=== PATIENT | female | born 1980 | race Caucasian/White ===

== ENCOUNTER 2017-03-24 11:25 | Emergency (ER) | payer BC, OTHER ==
[~2017-03-24] VITALS: Ht 172.7 cm; Wt 76.0 kg
[~2017-03-24 11:25] MED LIST: AMOX875T2 PO; LORTA5 PO; SYNT88TA PO; TAB-TAB PO
[2017-03-24 11:27] VITALS: BP 127/95; PULSE 87; RESP 20; TEMP 98.4; O2SAT 100
--- NOTE | 2017-03-24 11:45 | PD ---
HPI Chief Complaint: Respiratory Distress Time Seen by Provider: 11:39 Travel History International Travel<30 days: No Contact w/Intl Traveler<30days: No Traveled to known affect area: No History of Present Illness HPI 36-year-old female complains of headache, sinus congestion, persistent cough. Patient states that the symptoms started a month ago. Patient was seen by personal physician and given amoxicillin and prednisone, then Z-Jay, and then Biaxin recently. Patient states that she had persistent symptoms despite taking the medications. Patient states that the headache is mild aching headache. Patient denies any visual change. Patient states that she has a lot of pressure on the frontal no masses sinus area. Patient denies earache or sore throat. Patient denies any neck pain. Patient denies chest pain or shortness of breath. Patient denies abdominal pain. Patient states that she has intermittent nausea but no vomiting or diarrhea. Patient denies any dysuria or frequency. Patient denies any vaginal discharge or bleeding. PFSH Past Medical History Hx Anticoagulant Therapy: No Anxiety: Yes Cardiovascular Problems: No Chemotherapy: No Cerebrovascular Accident: No Diabetes: No Diminished Hearing: No Hypertension: Yes Respiratory: No Thyroid Disease: Yes (hypo) ?: Unknown LMP: 03/21/17 Past Surgical History Hysterectomy: No Other Surgery: Yes (ADNIODS REMOVED, BREAST AUGMENTATION 1999, 2000) Social History Alcohol Use: Yes (7 DRINKS WEEKLY) Tobacco Use: Yes (1PPD FOR 10 YEARS) Substance Use: No Allergies-Medications (Allergen,Severity, Reaction): Coded Allergies: No Known Allergies (Verified , 03/24/17) Reported Meds & Prescriptions Reported Meds & Active Scripts Active Reported Ativan (Lorazepam) 1 Mg Tab 1 Mg PO HS PRN One Daily (Multiple Vitamin) 1 Tab 1 Tab PO DAILY Probiotic (Saccharomyces Boulardii) 250 Mg Cap 250 Mg PO BID Wellbutrin Xl 24 HR (Bupropion HCl) 150 Mg Tab 150 Mg PO DAILY Synthroid (Levothyroxine Sodium) 100 Mcg Tab 100 Mcg PO DAILY Review of Systems General / Constitutional: No: Fever Eyes: No: Visual changes HENT: Positive: Congestion, No: Headaches Cardiovascular: No: Chest Pain or Discomfort Respiratory: Positive: Cough, No: Shortness of Breath Gastrointestinal: No: Abdominal Pain Genitourinary: No: Dysuria Musculoskeletal: No: Pain Skin: No Rash Neurologic: No: Weakness Psychiatric: No: Depression Endocrine: No: Polydipsia Hematologic/Lymphatic: No: Easy Bruising Physical Exam Narrative GENERAL: Well-nourished, well-developed patient. SKIN: Focused skin assessment warm/dry. HEAD: Normocephalic. EYES: No scleral icterus. No injection or drainage. TM: Clear. Throat: Nonerythematous. Patient has tenderness on palpation frontal and maxillary sinus area. NECK: Supple, trachea midline. No JVD or lymphadenopathy. No meningismus CARDIOVASCULAR: Regular rate and rhythm without murmurs, gallops, or rubs. RESPIRATORY: Breath sounds equal bilaterally. No accessory muscle use. GASTROINTESTINAL: Abdomen soft, non-tender, nondistended. MUSCULOSKELETAL: No cyanosis, or edema. BACK: Nontender without obvious deformity. No CVA tenderness. Neurologic exam normal. Data Data Last Documented VS Vital Signs Date Time Temp Pulse Resp B/P Pulse Ox O2 Delivery O2 Flow Rate FiO2 03/24/17 13:13 71 20 121/76 99 Room Air 03/24/17 11:53 99.0 Orders Complete Blood Count With Diff (03/24/17 11:39) Comprehensive Metabolic Panel (03/24/17 11:39) Monoscreen (03/24/17 11:39) Influenzae A/B Antigen (03/24/17 11:39) Chest, Single Ap (03/24/17 11:39) Iv Access Insert/Monitor (03/24/17 11:39) Ecg Monitoring (03/24/17 11:39) Oximetry (03/24/17 11:39) Ct Sinuses W/O Iv Contrast (03/24/17 ) Ed Urine Pregnancytest Poc (03/24/17 12:13) Ketorolac Inj (Toradol Inj) (03/24/17 12:30) Labs Laboratory Tests Test 03/24/17 12:02 White Blood Count 5.5 TH/MM3 Red Blood Count 4.64 MIL/MM3 Hemoglobin 14.4 GM/DL Hematocrit 42.3 % Mean Corpuscular Volume 91.1 FL Mean Corpuscular Hemoglobin 31.1 PG Mean Corpuscular Hemoglobin 34.1 % Concent Red Cell Distribution Width 12.7 % Platelet Count 230 TH/MM3 Mean Platelet Volume 8.9 FL Neutrophils (%) (Auto) 67.9 % Lymphocytes (%) (Auto) 23.4 % Monocytes (%) (Auto) 6.6 % Eosinophils (%) (Auto) 1.3 % Basophils (%) (Auto) 0.8 % Neutrophils # (Auto) 3.8 TH/MM3 Lymphocytes # (Auto) 1.3 TH/MM3 Monocytes # (Auto) 0.4 TH/MM3 Eosinophils # (Auto) 0.1 TH/MM3 Basophils # (Auto) 0.0 TH/MM3 CBC Comment DIFF FINAL Differential Comment Sodium Level 140 MEQ/L Potassium Level 4.2 MEQ/L Chloride Level 106 MEQ/L Carbon Dioxide Level 26.3 MEQ/L Anion Gap 8 MEQ/L Blood Urea Nitrogen 17 MG/DL Creatinine 0.89 MG/DL Estimat Glomerular Filtration 72 ML/MIN Rate Random Glucose 65 MG/DL Calcium Level 9.5 MG/DL Total Bilirubin 0.3 MG/DL Aspartate Amino Transf 16 U/L (AST/SGOT) Alanine Aminotransferase 30 U/L (ALT/SGPT) Alkaline Phosphatase 69 U/L Total Protein 7.1 GM/DL Albumin 4.0 GM/DL Monoscreen NEG MDM Medical Decision Making Medical Screen Exam Complete: Yes Emergency Medical Condition: Yes Interpretation(s) Last Impressions Chest X-Ray 03/24/17 1139 Signed Impressions: Service Date/Time: Friday, March 24, 2017 11:36 - CONCLUSION: 1. No acute cardiomegaly disease. Fabian Fowler MD 12:22 PM. CBC within normal limit. 1:[address] of the sinus negative for acute disease. Monoscreen negative. Influenza AB antigen negative. Differential Diagnosis Differential diagnosis including sinusitis, bronchitis, pneumonia, reactive airway disease, viral syndrome. Narrative Course 36-year-old female with headache, sinus pressure, persistent cough. Diagnosis Primary Impression: Cephalgia Qualified Code: R51 - Nonintractable episodic headache, unspecified headache type Additional Impression: Viral syndrome Patient Instructions: General Instructions Additional Instructions: Take medications as needed. Follow-up with personal physician. Return if persistent problem or worse. Med/Other Pt SpecificInfo: Prescription(s) given Scripts Ondansetron Odt (Zofran Odt)4 Mg Tab4 Mg SL Q6HR PRN (Nausea/Vomiting) #10 TAB Ref 0 Prov:Rod De Oliveira MD 03/24/17 Qtofexvfwu-Oqeoeotcnondc-Cpkasnag (Fioricet)50-300-40 Mg Cap1-2 Cap PO Q6H PRN ( HEADACHE) #30 CAP Ref 0 Prov:Rod De Oliveira MD 03/24/17 Disposition: 01 DISCHARGE HOME Condition: Stable Rod De Oliveira MD Mar 24, 2017 11:45
[2017-03-24 11:51] VITALS: BP 139/93; PULSE 73; RESP 21; TEMP 99; O2SAT 99
[2017-03-24 11:53] VITALS: BP 139/93; PULSE 73; RESP 21; TEMP 99; O2SAT 100
--- NOTE | 2017-03-24 11:58 | RADRPT ---
EXAM DATE/TIME: 03/24/2017 11:36 [facility] COMPARISON: No previous studies available for comparison. INDICATIONS : Shortness of breath. MEDICAL HISTORY : None. SURGICAL HISTORY : None. ENCOUNTER: Initial ACUITY: 3 days PAIN SCORE: 0/10 LOCATION: Bilateral chest FINDINGS: A single view of the chest demonstrates the lungs to be symmetrically aerated without evidence of mas s, infiltrate or effusion. The cardiomediastinal contours are unremarkable. Osseous structures are intact. CONCLUSION: 1. No acute cardiomegaly disease. Fabian Fowler MD on March 24, 2017 at 11:55 Board Certified Radiologist. This report was verified electronically.
[2017-03-24 12:15] LABS: AUTOMATED NEUTROPHIL # 3.8 TH/MM3 (1.8-7.7); BASOPHIL % 0.8 % (0.0-2.0); EOSINOPHIL # 0.1 TH/MM3 (0-0.4); EOSINOPHIL % 1.3 % (0.0-4.0); HEMATOCRIT 42.3 % (35.0-46.0); HEMO FLAGS DIFF FINAL; LYMPH % 23.4 % (9.0-44.0); LYMPHOCYTE # 1.3 TH/MM3 (1.0-4.8); MEAN CELL VOLUME 91.1 FL (80.0-100.0); MEAN CORPUSCULAR HEMOGLOBIN 31.1 PG (27.0-34.0); MEAN CORPUSCULAR HGB CONC 34.1 % (32.0-36.0); MONO % 6.6 % (0.0-8.0); NEUT % 67.9 % (16.0-70.0); PLATELET COUNT 230 TH/MM3 (150-450); RED BLOOD COUNT 4.64 MIL/MM3 (4.00-5.30); RED CELL DISTRIBUTION WIDTH 12.7 % (11.6-17.2); WHITE BLOOD COUNT 5.5 TH/MM3 (4.0-11.0)
[2017-03-24] MEDS ORDERED: KETOROLAC TROMETHAMINE 30 MG/ML (IVP) VIAL IV PUSH ONE (12:30)
[2017-03-24 12:36] LABS: ALT (GPT) 30 U/L (10-53); ANION GAP 8 MEQ/L (5-15); AST (GOT) 16 U/L (15-37); BICARBONATE 26.3 MEQ/L (21.0-32.0); BLOOD UREA NITROGEN 17 MG/DL (7-18); CHLORIDE 106 MEQ/L (98-107); GLOMERULAR FILTRATION RATE 72 ML/MIN (>89); POTASSIUM 4.2 MEQ/L (3.5-5.1); SODIUM (NA) 140 MEQ/L (136-145)
[2017-03-24] MEDS ORDERED: SACC1CAP3 PO (12:37)
[2017-03-24] MEDS ORDERED: BUPR150XL PO (12:37)
[2017-03-24] MEDS ORDERED: LEVO.1 PO (12:37)
[2017-03-24 12:39] LABS: ALKALINE PHOSPHATASE 69 U/L (45-117); TOTAL BILIRUBIN ADULT 0.3 MG/DL (0.2-1.0)
[2017-03-24] MEDS ORDERED: LORA-474 PO (12:39)
[2017-03-24] MEDS ORDERED: MULT-207 PO (12:39)
--- NOTE | 2017-03-24 12:43 | RADRPT ---
EXAM DATE/TIME: 03/24/2017 12:14 [facility] COMPARISON: No previous studies available for comparison. INDICATIONS : Headache RADIATION DOSE: 13.57 CTDIvol (mGy) MEDICAL HISTORY : Hypertension. SURGICAL HISTORY : None. ENCOUNTER: Initial ACUITY: 1 day PAIN SCORE: 5/10 LOCATION: facial TECHNIQUE: Volumetric scanning of the paranasal sinuses was performed. Using automated exposure control and adjustment of the mA and/or kV according to patient size, radiation dose was kept as low as reasonably achievable to obtain optimal diagnostic quality images. FINDINGS: MAXILLARY SINUSES: Normal. No significant mucosal thickening or fluid. Infundibula are patent. No anomalous inferior orbital ethmoid (Syibl) air cells. ETHMOID SINUSES: Normal. No significant mucosal thickening or fluid. Fovea ethmoidal and lamina papyracea are symmetric and intact. SPHENOID SINUSES: Normal. No significant mucosal thickening or fluid. Sphenoethmoidal recesses are patent. No bony dehiscence. FRONTAL SINUSES: Normal. No significant mucosal thickening or fluid. Frontal recesses are paten t. No anomalous frontal air cells. NASAL FOSSA: Normal. No septal perforation or deviation. No audie bullosa or paradoxical turbina karthik are identified. OTHER: Normal. Limited views of the skull base and orbits are unremarkable. CONCLUSION: Negative for significant sinus disease. Jose Heard MD FACR on March 24, 2017 at 12:39 Board Certified Radiologist. This report was verified electronically.
[2017-03-24 13:13] VITALS: BP 121/76; PULSE 71; RESP 20; O2SAT 99
[2017-03-24] MEDS ORDERED: BUTA1CAP PO (13:24)
[2017-03-24] MEDS ORDERED: ZOFR4TAB3 SL (13:24)
== END 2017-03-24 14:10 | disposition home or self-care (01) ==
LOC: NEPD 11:25
DX: R51 Headache (principal); B34.9 Viral infection, unspecified; R06.02 Shortness of breath; I10 Essential (primary) hypertension; F17.210 Nicotine dependence, cigarettes, uncomplicated
CPT/HCPCS: 70486; 71010; 80053; 84703; 85025; 86308; 87804; 96374; 99285; J1885

== ENCOUNTER 2017-08-16 16:31 | Emergency (ER) | payer BC, OTHER ==
[~2017-08-16 16:31] MED LIST changes: -AMOX875T2 PO; +BUPR150XL PO; +BUTA1CAP PO; +LEVO.1 PO; +LORA-474 PO; -LORTA5 PO; +MULT-207 PO; +SACC1CAP3 PO; -SYNT88TA PO; -TAB-TAB PO; +ZOFR4TAB3 SL
[2017-08-16 16:40] VITALS: BP 131/88; PULSE 77; RESP 20; TEMP 98.5; O2SAT 98
[2017-08-16 17:25] LABS: BLOOD, URINE NEG (NEG); GLUCOSE,URINE NEG (NEG); KETONE, URINE NEG (NEG); NITRITE,URINE NEG (NEG)
[2017-08-16 17:35] LABS: METHOD OF COLLECTION CLEAN CATCH; URINE COLOR YELLOW (YELLW/STRAW)
[2017-08-16 17:36] LABS: COMMENT (UR) CULT NOT INDICATED; CULTURE IF INDICATED CULT NOT INDICATED; SQUAMOUS EPITHELIAL CELL URINE 0-5 /hpf (0-5)
[2017-08-16 17:58] LABS: BETA HCG QUANT 33935 MIU/ML (0-5)
--- NOTE | 2017-08-16 18:17 | RADRPT ---
EXAM DATE/TIME: 08/16/2017 17:40 [facility] COMPARISON: No previous studies available for comparison. INDICATIONS : Ectopic. LAB(S): Beta-hC MEDICAL HISTORY : Hypertension. Thyroid disease. SURGICAL HISTORY : Breast augmentation. Adnoids removed. ENCOUNTER: Initial ACUITY: 3 days PAIN SCORE: 0/10 LOCATION: Bilateral pelvis MEASUREMENTS: UTERUS: 7.2 x 6.2 x 4.1 cm ENDOMETRIAL STRIPE: 12 mm RIGHT OVARY: 1.2 x 1.4 x 1.6 cm LEFT OVARY: 4.2 x 2.1 x 2.2 cm FREE FLUID: No CROWN RUMP LENGTH: 0.5 cm = 6 WKS 1 DAYS FHR: 140 BPM FINDINGS: Gestational sac is noted containing a pole sac with a mean gestational age based on crown-rump length of 6 weeks one day. Based on mean sac diameter estimated gestational age of 7 weeks 2 days. Fe john heart rate activity is documented with a heart rate of 148.2 beats per minute. Right ovary is nor mal in appearance. The left ovary contains a hypoechoic mass felt to represent a corpus luteal cyst m easuring 2.6 x 1.6 x 1.8 cm. There is no free fluid. CONCLUSION: 1. Single viable intrauterine gestation as described above. Bruno Tong MD on August 16, 2017 at 18:13 Board Certified Radiologist. This report was verified electronically.
--- NOTE | 2017-08-16 18:46 | PD ---
HPI Chief Complaint: [employer] Problem/Complaint Time Seen by Provider: 16:52 Travel History International Travel<30 days: No Contact w/Intl Traveler<30days: No Traveled to known affect area: No History of Present Illness HPI 37-year-old female 1 para 0 and thought to be about 7 weeks based on last menstruation arrives due to spotting trace amounts when wiping after urination which was first noticed a couple hours prior to ER arrival. She 's had no vomiting or fever. She describes some pelvic pain on both the right and left side of moderate severity slightly worse with palpation. She denies abnormal vaginal discharge. No urinary complaint. She has follow-up with Dr. Meade however has not undergone a formal ultrasound as of yet. PFSH Past Medical History Hx Anticoagulant Therapy: No Anxiety: Yes Cardiovascular Problems: No Chemotherapy: No Cerebrovascular Accident: No Diabetes: No Diminished Hearing: No Hypertension: Yes Respiratory: No Immunizations Current: Yes Thyroid Disease: Yes Influenza Vaccination: No ?: LMP: 07 02 17 : 1 : 1 Past Surgical History Hysterectomy: No Other Surgery: Yes (ADNIODS REMOVED, BREAST AUGMENTATION 1999, 2000) Social History Alcohol Use: No Tobacco Use: No (DENIES) Substance Use: No Allergies-Medications (Allergen,Severity, Reaction): Coded Allergies: No Known Allergies (Verified , 03/24/17) Reported Meds & Prescriptions Reported Meds & Active Scripts Active Fioricet (Osmrozoqcz-Sqyaupmldrkme-Wigmrjbj) 50-300-40 Mg Cap 1-2 Cap PO Q6H PRN Reported One Daily (Multiple Vitamin) 1 Tab 1 Tab PO DAILY Probiotic (Saccharomyces Boulardii) 250 Mg Cap 250 Mg PO BID Wellbutrin Xl 24 HR (Bupropion HCl) 150 Mg Tab 150 Mg PO DAILY Synthroid (Levothyroxine Sodium) 100 Mcg Tab 100 Mcg PO DAILY Review of Systems Except as stated in HPI: all other systems reviewed are Neg General / Constitutional: No: Fever Genitourinary: Positive: Vaginal Bleeding Physical Exam Narrative GENERAL: 37-year-old female pleasant well-nourished well-developed no acute distress SKIN: Warm and dry. HEAD: Atraumatic. Normocephalic. EYES: Pupils equal and round. No scleral icterus. No injection or drainage. ENT: No nasal bleeding or discharge. Mucous membranes pink and moist. NECK: Trachea midline. No JVD. CARDIOVASCULAR: Regular rate and rhythm. RESPIRATORY: No accessory muscle use. Clear to auscultation. Breath sounds equal bilaterally. GASTROINTESTINAL: Soft. Minimal tenderness overlying the suprapubic abdomen. No tenderness at McBurney's point. MUSCULOSKELETAL: Extremities without clubbing, cyanosis, or edema. No obvious deformities. NEUROLOGICAL: Awake and alert. No obvious cranial nerve deficits. Motor grossly within normal limits. Five out of 5 muscle strength in the arms and legs. Normal speech. PSYCHIATRIC: Appropriate mood and affect; insight and judgment normal. Data Data Last Documented VS Vital Signs Date Time Temp Pulse Resp B/P (MAP) Pulse Ox O2 Delivery O2 Flow Rate FiO2 08/16/17 16:40 98.5 77 20 131/88 (102) 98 vital signs reviewed Orders Orders Beta Hcg (Quant/Titer) (08/16/17 17:05) Complete Rh (08/16/17 17:05) Urinalysis - C+S If Indicated (08/16/17 17:05) Us Pelvis (Ques Pr/Ect)W Trans (08/16/17 ) Labs Laboratory Tests Test 08/16/17 17:10 08/16/17 17:15 Urine Collection Type CLEAN CATCH Urine Color YELLOW Urine Turbidity CLEAR Urine pH 6.0 Urine Specific [place] 1.014 Urine Protein NEG mg/dL Urine Glucose (UA) NEG mg/dL Urine Ketones NEG mg/dL Urine Occult Blood NEG Urine Nitrite NEG Urine Bilirubin NEG Urine Leukocyte Esterase NEG Urine Squamous Epithelial Cells 0-5 /hpf Urine Amorphous Sediment FEW Microscopic Urinalysis Comment CULT NOT INDICATED Urine Collection Time 1710 Human Chorionic Gonadotropin, Quant 56984 MIU/ML [facility] Medical Decision Making Medical Screen Exam Complete: Yes Emergency Medical Condition: Yes Medical Record Reviewed: Yes Differential Diagnosis IUP, UTI, ectopic , ov torsion, appendicitis, TOA, cervicitis, BV, Trichomoniasis, ov cyst, hernia, mittelschmerz, pain from menstruation Narrative Course Beta hCG is 33,935 Pelvic ultrasound reveals an intrauterine Pt verbalized intent to follow up with Dr Lopez in two days The blood type is O+ Diagnosis Primary Impression: First trimester bleeding Additional Impression: Intrauterine Additional Instructions: PLEASE FOLLOW UP WITH DR LOPEZ WE DISCUSSED. THE BETA TEST IS 33,935. PLEASE BE SURE TO OBTAIN A REPEAT BETA HCG WHEN YOU FOLLOW UP WITH DR LOPEZ. Med/Other Pt SpecificInfo: No Change to Meds Disposition: 01 DISCHARGE HOME Condition: Stable Cali Call MD Aug 16, 2017 18:46
== END 2017-08-16 19:33 | disposition home or self-care (01) ==
LOC: PHED 16:31
DX: O20.9 Hemorrhage in early pregnancy, unspecified (principal); O09.511 Supervision of elderly primigravida, first trimester; Z3A.01 Less than 8 weeks gestation of pregnancy
CPT/HCPCS: 76700; 76817; 81001; 84702; 86901; 99284